=== PATIENT | female | born 1960 | race Caucasian/White ===

== ENCOUNTER 2025-05-18 10:49 | Outpatient (CLI) | payer MEDICARE ==
[2025-05-18] MEDS ORDERED: iohexol 300mg/ml 100ml inj. ONE (11:01)
--- NOTE | 2025-05-18 13:03 | RADIOLOGY REPORT ---
Indication: RECCURENT URINARY TRACT INFECTION Technique: CT axial images of the abdomen and pelvis are obtained with and without intravenous contrast. Coronal and sagittal reformats were obtained. Radiation Dose Information: CTDI volume is 28 mGy. Dose-length product is 5004 mGy*cm Comparison: None FINDINGS: Lung bases demonstrate no pleural effusion. Adrenal glands, spleen, pancreas unremarkable. No enhancing hepatic lesion. No CT evidence for cholelithiasis. No hydronephrosis . No nephrolithiasis. No ureteral filling defect. Small hiatal hernia. Small bowel loops are normal in caliber. Colonic diverticular disease. Normal appendix. Abdominal aortic atherosclerotic disease. Bladder partially distended . No filling defects identified within the bladder on the delayed urogram images. There is no free pelvic fluid. No inguinal lymphadenopathy. Yttl-me-fpmhhojj bilateral sacroiliac degenerative joint disease. Elxq-kh-oqihvuoz bilateral sacroiliac degenerative joint disease. Vcyw-vh-yzqseava thoracolumbar degenerative disc disease. IMPRESSION: No hydronephrosis. No nephrolithiasis. No ureteral obstruction identified. Colonic diverticular disease. Small hiatal hernia. Other findings as
== END 2025-05-18 23:59 | disposition home or self-care (01) ==
LOC: RAD 10:49
PROVIDERS: ATTEND Urology Female Pelvic Medicine and Reconstructive Surgery
DX: K57.30 Diverticulosis of large intestine without perforation or abscess without bleeding (principal); K44.9 Diaphragmatic hernia without obstruction or gangrene; N32.89 Other specified disorders of bladder; N39.0 Urinary tract infection, site not specified; I70.0 Atherosclerosis of aorta; M51.35 Other intervertebral disc degeneration, thoracolumbar region; M19.09 Primary osteoarthritis, other specified site
CPT/HCPCS: 74178; Q9967

== ENCOUNTER 2025-06-02 08:10 | Outpatient (CLI) | payer MEDICARE ==
--- NOTE | 2025-06-02 09:44 | RADIOLOGY REPORT ---
CLINICAL INFORMATION: PAIN IN RIGHT SHOULDER. TECHNIQUE: Multisequence multiplanar MRI images of the right shoulder were obtained without contrast. COMPARISON: None FINDINGS: Acromioclavicular joint: There is dxti-ma-bshppxuh acromioclavicular hypertrophy and ujhq-sw-arbvyedk edema. There is Type 2 acromion. Small amount of fluid in the subacromial / subdeltoid bursa. Rotator cuff tendons: Mild tendinosis of the distal supraspinatus and infraspinatus tendons. No tear. Mild tendinosis of the distal subscapularis tendon with mild articular surface fraying near the insertion. Teres minor tendon is intact and otherwise unremarkable. Biceps tendon: No significant tendinosis. No evidence of attrition or tear. Labrum: No labral tear identified. Bones: No fracture or focal marrow contusion. Muscles: Normal muscle bulk. No atrophy. Other: No other significant findings. IMPRESSION: 1. Rotator cuff tendinosis. Mild articular surface fraying of the distal subscapularis tendon. No full-thickness or near full-thickness rotator cuff tear. 2. Gsqe-bb-sgmuyoha acromioclavicular hypertrophy with mild subacromial / subdeltoid bursitis.
== END 2025-06-02 23:59 | disposition home or self-care (01) ==
LOC: MRI02 08:10
PROVIDERS: ATTEND General Practice
DX: M75.101 Unspecified rotator cuff tear or rupture of right shoulder, not specified as traumatic (principal); M25.511 Pain in right shoulder; M89.311 Hypertrophy of bone, right shoulder; M75.51 Bursitis of right shoulder
CPT/HCPCS: 73221